=== PATIENT | female | born 1940 | race Caucasian/White ===

== ENCOUNTER 2017-04-21 09:38 | Inpatient (IN) | payer MEDICARE, OTHER, MEDICAID ==
[~2017-04-21 09:38] MED LIST: ATROPINE 1 MG/10 ML SYRINGE; GLUCAGON 1 MG INJ
[2017-04-21] MEDS ORDERED: LORAZEPAM 2 MG INJ (09:59)
[2017-04-21] MEDS: LORAZEPAM 2 MG INJ IV (10:20)
[2017-04-21 10:38] LABS: WHITE BLOOD COUNT 11.2 10^3/ul (4.8-10.8)
[2017-04-21 10:38] LABS: ADD MAN DIFF? NO; BASOPHILS % 0.4 % (0.0-2.0); EOSINOPHILS # 0.3 10^3/ul (0.0-0.5); HEMATOCRIT 40.1 % (37.0-47.0); LYMPHOCYTES # 2.4 10^3/ul (0.8-2.9); LYMPHOCYTES % 21.2 % (15.0-51.0); MEAN CORPUSCULAR HGB CONC 32.4 g/dl (32.0-37.0); MEAN CORPUSCULAR VOLUME 98.8 fl (82.0-101.0); MONOCYTE # 1.2 10^3/ul (0.3-0.9); MONOCYTES % 10.3 % (0.0-11.0); NEUTROPHIL # 7.2 10^3/ul (1.6-7.5); NEUTROPHILS % 64.5 % (39.0-77.0); PLATELET COUNT 173 10^3/UL (140-415); RED BLOOD COUNT 4.06 10^6/ul (4.20-5.40); RED CELL DISTRIBUTION WIDTH 13.2 % (11.5-14.5)
[2017-04-21 10:48] LABS: ALANINE AMINOTRANSFERASE 20 IU/L (13-69); ALBUMIN 3.7 g/dl (3.3-4.9); ALBUMIN/GLOBULIN RATIO 1.23; ALKALINE PHOSPHATASE 88 IU/L (42-121); ANION GAP 19 (8-16); ASPARTATE AMINO TRANSFERASE 22 IU/L (15-46); BILIRUBIN,INDIRECT 0.1 mg/dl (0-1.1); BILIRUBIN,TOTAL 0.1 mg/dl (0.2-1.3); BLOOD UREA NITROGEN 20 mg/dl (7-20); CALCIUM 8.8 mg/dl (8.4-10.2); CARBON DIOXIDE 20 mmol/L (21-31); CHLORIDE 100 mmol/L (97-110); CREATININE 2.27 mg/dl (0.44-1.00); GLUCOSE 132 mg/dl (70-220); POTASSIUM 3.5 mmol/L (3.5-5.1); SODIUM 135 mmol/L (135-144); TOTAL PROTEIN 6.7 g/dl (6.1-8.1)
[2017-04-21] MEDS: PHENYTOIN 1,000 MG in SOD CHLORIDE 0.9% 80 ML IVPB (11:04)
[2017-04-21 13:36] LABS: FREE T4 (FREE THYROXINE) 1.45 ng/dl (0.78-2.44)
[2017-04-21 13:50] LABS: ADD UMIC YES; UR ASCORBIC ACID 40 mg/dL (NEGATIVE); UR BACTERIA FEW /HPF (NONE SEEN); UR BILIRUBIN (Dip) NEGATIVE (NEGATIVE); UR BLOOD (Dip) 3+ mg/dL (NEGATIVE); UR CLARITY TURBID (CLEAR); UR COLOR AMBER (YELLOW); UR GLUCOSE (Dip) 1+ mg/dL (NEGATIVE); UR HYALINE CAST FEW /HPF (NONE SEEN); UR KETONES (Dip) TRACE mg/dL (NEGATIVE); UR LEUKOCYTE ESTERASE (Dip) 2+ Leu/ul (NEGATIVE); UR NITRITE (Dip) NEGATIVE (NEGATIVE); UR NONSQUAMOUS EPITHELIAL CELL 7 /HPF (NONE SEEN); UR RBC > 182 /HPF (0-5); UR SQUAMOUS EPITHELIAL CELL MODERATE /HPF (FEW); UR TOTAL PROTEIN (Dip) 2+ mg/dl (NEGATIVE); UR UROBILINOGEN (Dip) NEGATIVE (NEGATIVE); UR WBC > 182 /HPF (0-5)
[2017-04-21 14:12] LABS: OCCULT BLOOD STOOL NEGATIVE (NEGATIVE)
[2017-04-21] MEDS ORDERED: ONDANSETRON 4 MG INJ IV ×2 (15:00→18:30)
[2017-04-21] MEDS ORDERED: ACETAMINOPHEN 325 MG TAB PO ×2 (15:00→18:30)
[2017-04-21] MEDS ORDERED: ACETAMINOPHEN 650 MG SUPP PR (18:30)
[2017-04-21] MEDS ORDERED: MAGNESIUM HYDROXIDE 30ML CUP PO (18:30)
[2017-04-21] MEDS ORDERED: DOCUSATE SODIUM 100 MG CAP PO (18:30)
[2017-04-21] MEDS ORDERED: BISACODYL (EC) 5 MG TAB PO (18:30)
[2017-04-21] MEDS ORDERED: NACL 0.9% 3 ML SYG IV (18:30)
[2017-04-21 18:35] LABS: AMPHETAMINE/METHAMPHETAMINE Negative (NEGATIVE); BARBITURATES Negative (NEGATIVE); BENZODIAZEPINES Negative (NEGATIVE); CANNABINOIDS Negative (NEGATIVE); COCAINE Negative (NEGATIVE); OPIATES Negative (NEGATIVE)
[2017-04-21] MEDS: LEVETIRACETAM IV 750 MG in DEXTROSE 5% 100 ML IVPB (19:55)
[2017-04-21] MEDS ORDERED: LEVETIRACETAM IV 750 MG in DEXTROSE 5% 100 ML IVPB (21:00)
[2017-04-21] MEDS: GABAPENTIN 300 MG CAP PO (21:00)
[2017-04-21] MEDS: METOPROLOL 25 MG TAB PO (21:00)
[2017-04-21] MEDS: LEVOFLOXACIN 500MG/D5W (PMX) 100 ML IVPB (21:55)
[2017-04-21] MEDS: DEXTROSE 5%-0.45% NACL 1,000 ML IV (21:56)
[2017-04-21 22:19] LABS: ALANINE AMINOTRANSFERASE 21 IU/L (13-69); ALBUMIN 3.5 g/dl (3.3-4.9); ALKALINE PHOSPHATASE 84 IU/L (42-121); ANION GAP 11 (8-16); ASPARTATE AMINO TRANSFERASE 27 IU/L (15-46); BLOOD UREA NITROGEN 27 mg/dl (7-20); CALCIUM 9.4 mg/dl (8.4-10.2); CARBON DIOXIDE 27 mmol/L (21-31); CHLORIDE 100 mmol/L (97-110); CREATININE 2.75 mg/dl (0.44-1.00); GLUCOSE 101 mg/dl (70-220); POTASSIUM 3.7 mmol/L (3.5-5.1); SODIUM 134 mmol/L (135-144)
[2017-04-22] MEDS: PANTOPRAZOLE 40 MG INJ IV (06:00)
[2017-04-22] MEDS: LEVOTHYROXINE 50 MCG TAB PO (07:00)
[2017-04-22] MEDS: ASPIRIN (EC) 81 MG TAB PO (09:00)
[2017-04-22] MEDS: METOPROLOL 25 MG TAB PO ×2 (09:00→20:09)
[2017-04-22] MEDS: DEXTROSE 5%-0.45% NACL 1,000 ML IV (18:10)
[2017-04-22] MEDS: LEVETIRACETAM IV 750 MG in DEXTROSE 5% 100 ML IVPB (20:08)
[2017-04-22] MEDS: GABAPENTIN 300 MG CAP PO (20:09)
[2017-04-22] MEDS ORDERED: ALBUMIN HUMAN 25% 50 ML IV (23:30)
[2017-04-23] MEDS: PANTOPRAZOLE 40 MG INJ IV (05:31)
[2017-04-23] MEDS: LEVOTHYROXINE 50 MCG TAB PO ×2 (07:00→08:50)
[2017-04-23] MEDS: METOPROLOL 25 MG TAB PO ×2 (08:49→20:16)
[2017-04-23] MEDS: ASPIRIN (EC) 81 MG TAB PO (08:50)
[2017-04-23 15:22] LABS: ADD MAN DIFF? NO
[2017-04-23 15:26] LABS: WHITE BLOOD COUNT 5.9 10^3/ul (4.8-10.8)
[2017-04-23 15:26] LABS: BASOPHILS % 0.5 % (0.0-2.0); EOSINOPHILS # 0.4 10^3/ul (0.0-0.5); EOSINOPHILS % 7.1 % (0.0-7.0); HEMOGLOBIN 10.5 g/dl (12.0-16.0); LYMPHOCYTES # 1.4 10^3/ul (0.8-2.9); LYMPHOCYTES % 24.2 % (15.0-51.0); MEAN CORPUSCULAR HEMOGLOBIN 32.1 pg (29.0-33.0); MEAN CORPUSCULAR HGB CONC 32.8 g/dl (32.0-37.0); MEAN CORPUSCULAR VOLUME 97.9 fl (82.0-101.0); MEAN PLATELET VOLUME 10.3 fl (7.4-10.4); MONOCYTE # 0.9 10^3/ul (0.3-0.9); MONOCYTES % 14.4 % (0.0-11.0); NEUTROPHIL # 3.1 10^3/ul (1.6-7.5); NEUTROPHILS % 53.3 % (39.0-77.0); PLATELET COUNT 157 10^3/UL (140-415); RED BLOOD COUNT 3.27 10^6/ul (4.20-5.40); RED CELL DISTRIBUTION WIDTH 13.5 % (11.5-14.5)
[2017-04-23 15:56] LABS: ALANINE AMINOTRANSFERASE 28 IU/L (13-69); ALBUMIN/GLOBULIN RATIO 1.07; ALKALINE PHOSPHATASE 71 IU/L (42-121); ANION GAP 10 (8-16); ASPARTATE AMINO TRANSFERASE 24 IU/L (15-46); BILIRUBIN,INDIRECT 0.4 mg/dl (0-1.1); BILIRUBIN,TOTAL 0.4 mg/dl (0.2-1.3); BLOOD UREA NITROGEN 15 mg/dl (7-20); CALCIUM 8.9 mg/dl (8.4-10.2); CARBON DIOXIDE 31 mmol/L (21-31); CHLORIDE 99 mmol/L (97-110); GLUCOSE 116 mg/dl (70-220); POTASSIUM 3.8 mmol/L (3.5-5.1); SODIUM 136 mmol/L (135-144); TOTAL PROTEIN 5.8 g/dl (6.1-8.1)
[2017-04-23] MEDS: DEXTROSE 5%-0.45% NACL 1,000 ML IV (18:00)
[2017-04-23 18:30] LABS: HEPATITIS B SURFACE ANTIGEN NEGATIVE (NEGATIVE)
[2017-04-23 18:48] LABS: HEPATITIS B SURFACE ANTIBODY NEGATIVE (NEGATIVE)
[2017-04-23] MEDS: LEVETIRACETAM IV 750 MG in DEXTROSE 5% 100 ML IVPB (20:16)
[2017-04-23] MEDS: GABAPENTIN 300 MG CAP PO (20:16)
[2017-04-23] MEDS: LEVOFLOXACIN 500MG/D5W (PMX) 100 ML IVPB (22:00)
[2017-04-24] MEDS: LEVOTHYROXINE 50 MCG TAB PO (06:14)
[2017-04-24] MEDS: PANTOPRAZOLE 40 MG INJ IV (06:14)
[2017-04-24] MEDS: ASPIRIN (EC) 81 MG TAB PO (08:09)
[2017-04-24] MEDS: METOPROLOL 25 MG TAB PO (08:09)
[2017-04-24] MEDS: GLUCAGON 1 MG INJ IV (09:44)
[2017-04-24] MEDS: ATROPINE 0.4 MG INJ IV (09:48)
[2017-04-24] MEDS: ATROPINE 1 MG/10 ML SYRINGE IV (09:57)
[2017-04-24] MEDS ORDERED: ATROPINE 0.4 MG INJ IV ×2 (10:00→13:30)
[2017-04-24] MEDS: INFLUENZA VIRUS VACCINE 0.5 ML (DISPENSING) IM* (14:51)
[2017-04-24 15:01] LABS: ADD MAN DIFF? NO
[2017-04-24 15:05] LABS: BASOPHILS % 0.4 % (0.0-2.0); EOSINOPHILS # 0.5 10^3/ul (0.0-0.5); EOSINOPHILS % 7.2 % (0.0-7.0); HEMATOCRIT 32.4 % (37.0-47.0); HEMOGLOBIN 10.5 g/dl (12.0-16.0); LYMPHOCYTES # 1.4 10^3/ul (0.8-2.9); LYMPHOCYTES % 18.4 % (15.0-51.0); MEAN CORPUSCULAR HEMOGLOBIN 32.4 pg (29.0-33.0); MEAN CORPUSCULAR HGB CONC 32.4 g/dl (32.0-37.0); MEAN PLATELET VOLUME 9.7 fl (7.4-10.4); MONOCYTE # 0.8 10^3/ul (0.3-0.9); MONOCYTES % 10.8 % (0.0-11.0); NEUTROPHIL # 4.6 10^3/ul (1.6-7.5); NEUTROPHILS % 62.8 % (39.0-77.0); PLATELET COUNT 138 10^3/UL (140-415); RED BLOOD COUNT 3.24 10^6/ul (4.20-5.40); RED CELL DISTRIBUTION WIDTH 13.3 % (11.5-14.5)
[2017-04-24 15:05] LABS: WHITE BLOOD COUNT 7.3 10^3/ul (4.8-10.8)
[2017-04-24 15:31] LABS: ALANINE AMINOTRANSFERASE 25 IU/L (13-69); ALBUMIN 2.6 g/dl (3.3-4.9); ALKALINE PHOSPHATASE 64 IU/L (42-121); ANION GAP 11 (8-16); ASPARTATE AMINO TRANSFERASE 22 IU/L (15-46); BLOOD UREA NITROGEN 26 mg/dl (7-20); CALCIUM 8.7 mg/dl (8.4-10.2); CARBON DIOXIDE 30 mmol/L (21-31); CHLORIDE 98 mmol/L (97-110); CREATININE 3.21 mg/dl (0.44-1.00); GLUCOSE 93 mg/dl (70-220); POTASSIUM 4.3 mmol/L (3.5-5.1); SODIUM 135 mmol/L (135-144); TOTAL PROTEIN 5.2 g/dl (6.1-8.1)
[2017-04-24] MEDS: DEXTROSE 5%-0.45% NACL 1,000 ML IV (18:53)
[2017-04-24] MEDS: BALSAM PERU/CASTOR OIL 60 GM TUBE TOP (22:53)
[2017-04-24] MEDS: NYSTATIN 30 GM POWDER BTL TOP (22:53)
[2017-04-24] MEDS: GABAPENTIN 300 MG CAP PO (22:53)
[2017-04-24] MEDS: LEVETIRACETAM IV 750 MG in DEXTROSE 5% 100 ML IVPB (23:37)
[2017-04-25] MEDS ORDERED: ATROPINE 1 MG/10 ML SYRINGE IV (01:03)
[2017-04-25 05:58] LABS: ADD MAN DIFF? NO
[2017-04-25] MEDS: LEVOTHYROXINE 50 MCG TAB PO (06:04)
[2017-04-25] MEDS: PANTOPRAZOLE 40 MG INJ IV (06:05)
[2017-04-25 06:32] LABS: ANION GAP 12 (8-16); BLOOD UREA NITROGEN 29 mg/dl (7-20); CALCIUM 8.7 mg/dl (8.4-10.2); CARBON DIOXIDE 27 mmol/L (21-31); CHLORIDE 99 mmol/L (97-110); CREATININE 3.64 mg/dl (0.44-1.00); GLUCOSE 87 mg/dl (70-220); POTASSIUM 4.8 mmol/L (3.5-5.1); SODIUM 133 mmol/L (135-144)
[2017-04-25 07:05] LABS: WHITE BLOOD COUNT 6.8 10^3/ul (4.8-10.8)
[2017-04-25 07:05] LABS: BASOPHILS % 0.4 % (0.0-2.0); EOSINOPHILS # 0.6 10^3/ul (0.0-0.5); EOSINOPHILS % 9.5 % (0.0-7.0); HEMATOCRIT 30.7 % (37.0-47.0); HEMOGLOBIN 10.1 g/dl (12.0-16.0); LYMPHOCYTES # 1.9 10^3/ul (0.8-2.9); LYMPHOCYTES % 28.5 % (15.0-51.0); MEAN CORPUSCULAR HEMOGLOBIN 32.5 pg (29.0-33.0); MEAN CORPUSCULAR HGB CONC 32.9 g/dl (32.0-37.0); MEAN CORPUSCULAR VOLUME 98.7 fl (82.0-101.0); MEAN PLATELET VOLUME 10.8 fl (7.4-10.4); MONOCYTE # 0.9 10^3/ul (0.3-0.9); MONOCYTES % 13.6 % (0.0-11.0); NEUTROPHIL # 3.2 10^3/ul (1.6-7.5); NEUTROPHILS % 47.6 % (39.0-77.0); PLATELET COUNT 118 10^3/UL (140-415); RED BLOOD COUNT 3.11 10^6/ul (4.20-5.40); RED CELL DISTRIBUTION WIDTH 13.5 % (11.5-14.5)
[2017-04-25 07:14] LABS: POSITIVE DIFF @See below
[2017-04-25] MEDS: ASPIRIN 81 MG TAB PO (09:30)
[2017-04-25] MEDS: NYSTATIN 30 GM POWDER BTL TOP ×2 (09:31→21:10)
[2017-04-25] MEDS: BALSAM PERU/CASTOR OIL 60 GM TUBE TOP ×2 (09:32→21:11)
[2017-04-25] MEDS: DEXTROSE 5%-0.45% NACL 1,000 ML IV (16:00)
[2017-04-25] MEDS: HEPARIN 1000 UNITS/ML 10 ML INJ CATHETER (16:51)
[2017-04-25] MEDS: GABAPENTIN 300 MG CAP PO (21:10)
[2017-04-25] MEDS: LEVETIRACETAM IV 750 MG in DEXTROSE 5% 100 ML IVPB (21:10)
[2017-04-25] MEDS: LEVOFLOXACIN 500MG/D5W (PMX) 100 ML IVPB (22:21)
[2017-04-26] MEDS: PANTOPRAZOLE 40 MG INJ IV (06:16)
[2017-04-26] MEDS: LEVOTHYROXINE 50 MCG TAB PO (07:00)
[2017-04-26] MEDS: BALSAM PERU/CASTOR OIL 60 GM TUBE TOP ×2 (08:17→21:07)
[2017-04-26] MEDS: ASPIRIN 81 MG TAB PO (08:17)
[2017-04-26] MEDS: DEXTROSE 5%-0.45% NACL 1,000 ML IV (08:18)
[2017-04-26] MEDS ORDERED: NIFEdipine (XL) 30 MG TAB PO (13:00)
[2017-04-26] MEDS: NYSTATIN 30 GM POWDER BTL TOP ×2 (13:00→21:08)
[2017-04-26] MEDS: AMLODIPINE 5 MG TAB PO (14:03)
[2017-04-26] MEDS: GABAPENTIN 300 MG CAP PO (21:00)
[2017-04-26] MEDS: LEVETIRACETAM IV 750 MG in DEXTROSE 5% 100 ML IVPB (21:02)
[2017-04-27] MEDS: PANTOPRAZOLE (EC) 40 MG TAB PO (06:25)
[2017-04-27] MEDS: ASPIRIN 81 MG TAB PO (08:43)
[2017-04-27] MEDS: LEVOTHYROXINE 50 MCG TAB PO (08:43)
[2017-04-27] MEDS: AMLODIPINE 5 MG TAB PO (08:43)
[2017-04-27] MEDS: NYSTATIN 30 GM POWDER BTL TOP (08:44)
[2017-04-27] MEDS: BALSAM PERU/CASTOR OIL 60 GM TUBE TOP (08:44)
[2017-04-27 08:53] LABS: PHENYTOIN (DILANTIN) < 3.0 ug/ml (10.0-20.0)
== END 2017-04-27 17:00 | DRG 100 ==
LOC: TEL 14:36 → ICU 04-24 14:20 → E/R 09:38 → MS4 04-25 18:57
PROC: 5A1D70Z Performance of Urinary Filtration, Intermittent, Less than 6 Hours Per Day (ICD-10-PCS; principal; 2017-04-23)
DX: G40.909 Epilepsy, unspecified, not intractable, without status epilepticus (principal); G92 Toxic encephalopathy; L89.153 Pressure ulcer of sacral region, stage 3; N18.6 End stage renal disease; E87.2 Acidosis; I12.0 Hypertensive chronic kidney disease with stage 5 chronic kidney disease or end stage renal disease; N39.0 Urinary tract infection, site not specified; I45.2 Bifascicular block; I25.10 Atherosclerotic heart disease of native coronary artery without angina pectoris; G20 Parkinson's disease; R00.1 Bradycardia, unspecified; D72.829 Elevated white blood cell count, unspecified; D64.9 Anemia, unspecified; E03.9 Hypothyroidism, unspecified; F02.80 Dementia in other diseases classified elsewhere, unspecified severity, without behavioral disturbance, psychotic disturbance, mood disturbance, and anxiety; E66.9 Obesity, unspecified; Z68.29 Body mass index [BMI] 29.0-29.9, adult; Z99.2 Dependence on renal dialysis; Z86.73 Personal history of transient ischemic attack (TIA), and cerebral infarction without residual deficits; Z79.82 Long term (current) use of aspirin
CPT/HCPCS: 36415; 70450; 70551; 71045; 80048; 80053; 80185; 80307; 81001; 82270; 82962; 83735; 84439; 84443; 85025; 86706; 87081; 87086; 87340; 90686; 90935; 92610; 93005; 95819; 96374; 96375; 99291-25